=== PATIENT | female | born 1985 | race Caucasian/White ===

== ENCOUNTER 2017-10-22 19:57 | Emergency (ER) | payer MEDICAID ==
[~2017-10-22] VITALS: Ht 571.8 cm; Wt 83.0 kg
[~2017-10-22 19:57] MED LIST: BACL10TA PO; CITA-278 PO; CITA20TA2 PO; TRAZ-143 PO
[2017-10-22] MEDS ORDERED: nicotine 21mg patch - 24 hr TD ONE (21:10)
[2017-10-22 21:21] LABS: BASOPHILS # (AUTO) 0.1 X10'3 (0-0.2); BASOPHILS % (AUTO) 1.8 % (0-1); EOSINOPHILS % (AUTO) 0.9 % (0-6); HEMATOCRIT 34.8 % (35.0-45.0); HEMOGLOBIN 11.6 g/dl (12.0-16.0); LYMPHOCYTES # (AUTO) 1.5 X10'3 (1.1-4.8); LYMPHOCYTES % (AUTO) 26.4 % (21-51); MEAN CORPUSCULAR HEMOGLOBIN 25.3 PG (27.0-31.0); MEAN CORPUSCULAR HGB CONC 33.3 % (33.0-36.5); MEAN CORPUSCULAR VOLUME 75.9 FL (78-98); MEAN PLATELET VOLUME 9.3 FL (7.4-10.4); MONOCYTES # (AUTO) 0.6 X10'3 (0-0.9); NEUTROPHILS # (AUTO) 3.4 X10'3 (1.8-7.7); NEUTROPHILS % (AUTO) 60.9 % (42-75); PLATELET COUNT 319 X10'3 (140-440); RED BLOOD COUNT 4.58 X10'6 (4.20-5.60); RED CELL DISTRIBUTION WIDTH 15.9 % (11.5-14.5); WHITE BLOOD COUNT 5.5 X10'3 (4.5-11.0)
[2017-10-22 21:35] LABS: ALANINE AMINOTRANSFERASE 25 U/L (12-78); ALBUMIN 3.6 G/DL (3.4-5.0); ALBUMIN/GLOBULIN RATIO 0.9 (1.1-1.5); ALKALINE PHOSPHATASE 133 IU/L (46-116); ANION GAP 15 (8-16); ASPARTATE AMINO TRANSFERASE 26 U/L (10-37); BILIRUBIN,TOTAL 0.2 MG/DL (0.1-1.0); BLOOD UREA NITROGEN 5 MG/DL (7-18); BUN/CREATININE RATIO 7.2 (6.6-38.0); CHLORIDE 103 MMOL/L (99-107); CREATININE 0.69 MG/DL (0.40-0.90); GLUCOSE 80 MG/DL (70-104); POTASSIUM 3.9 MMOL/L (3.5-5.1); SODIUM 141 MMOL/L (135-145); TOTAL CARBON DIOXIDE 22.9 MMOL/L (24-32); TOTAL PROTEIN 7.8 G/DL (6.4-8.2); eGFR > 90 ML/MIN
[2017-10-22 21:49] LABS: ACETAMINOPHEN < 2.0 UG/ML (10-30)
[2017-10-23 04:09] LABS: CLARITY,URINE SLIGHTLY CLOUDY (Clear); COLOR,URINE YELLOW (Yellow); GLUCOSE, URINE NEGATIVE (Neg); KETONES,URINE 15 mg/dl (Neg); LEUKOCYTE ESTERASE ,URINE NEGATIVE (Neg); NITRITES, URINE NEGATIVE (Neg); OCCULT BLOOD,URINE TRACE-LYSED (Neg); PROTEIN,URINE NEGATIVE (Neg); UROBILINOGEN,URINE 0.2 E.U/dL (0.2-1.0)
[2017-10-23 04:11] LABS: URINE HCG NEGATIVE (NEG)
[2017-10-23 04:13] LABS: UA COLLECTION TYPE CLN CATCH MIDSTREAM
[2017-10-23 04:16] LABS: URINE AMPHETAMINE SCREEN NEGATIVE (Neg); URINE BARBITUATE SCREEN NEGATIVE (Neg); URINE BENZODIAZEPINES SCREEN NEGATIVE (Neg); URINE CANNABINOID SCREEN NEGATIVE (Neg); URINE COCAINE SCREEN NEGATIVE (Neg); URINE METHADONE SCREEN NEGATIVE (Neg); URINE OPIATE SCREEN NEGATIVE (Neg); URINE PHENCYCLIDINE SCREEN NEGATIVE (Neg)
[2017-10-23 04:28] LABS: BACTERIA,URINE 2+ /HPF (Neg); MUCUS STRANDS MANY /LPF (Neg); RBC,URINE NONE SEEN /HPF (0-2); SQUAMOUS EPITHELIAL CELL,UR MANY /LPF (FEW); WBC,URINE 0-4 /HPF (0-4)
[2017-10-23] MEDS ORDERED: LORazepam 0.5 MG tablet PO PRN (07:25)
[2017-10-23] MEDS ORDERED: baclofen 10mg tablet PO PRN (07:35)
[2017-10-23] MEDS ORDERED: traZODone 50mg tablet PO PRN (07:35)
[2017-10-23] MEDS: citalopram 20mg tablet PO SCH (08:15)
[2017-10-23] MEDS: nicotine prolacrilex 2mg gum BC PRN (21:18)
[2017-10-24] MEDS: nicotine prolacrilex 2mg gum BC PRN ×3 (06:51→14:38)
[2017-10-24] MEDS: citalopram 20mg tablet PO SCH (07:36)
[2017-10-24 16:57] VITALS: BP 128/74
== END 2017-10-24 16:47 ==
LOC: ER 19:57
DX: F32.9 Major depressive disorder, single episode, unspecified (principal); F41.9 Anxiety disorder, unspecified; G89.29 Other chronic pain; M54.5 Low back pain
CPT/HCPCS: 36415; 80053; 80305; 80320; 80329; 81001; 81025; 84443; 85025; 93005; 99285

== ENCOUNTER 2018-01-20 11:41 | Emergency (ER) | payer MEDICAID ==
[~2018-01-20] VITALS: Ht 165.1 cm; Wt 86.4 kg
[~2018-01-20 11:41] MED LIST changes: -CITA-278 PO; -TRAZ-143 PO; +TRAZ-218 PO
[2018-01-20 13:30] VITALS: BP 96/57
== END 2018-01-20 13:54 | disposition home or self-care (01) ==
LOC: ER 11:42
DX: J02.9 Acute pharyngitis, unspecified (principal); J06.9 Acute upper respiratory infection, unspecified; I10 Essential (primary) hypertension; Z79.899 Other long term (current) drug therapy; Z56.0 Unemployment, unspecified; Z60.2 Problems related to living alone
CPT/HCPCS: 87081; 87880; 99284

== ENCOUNTER 2018-12-20 00:58 | Emergency (ER) | payer MEDICAID ==
[~2018-12-20] VITALS: Ht 165.1 cm; Wt 97.0 kg
[~2018-12-20 00:58] MED LIST changes: -BACL10TA PO; -CITA20TA2 PO; +FOLI1TAB16 PO; +HYDR-3972 PO; +IBUP-1984 PO; +LORA0.5T PO; +MULT-1179 PO; +NICO-631 TD; -TRAZ-218 PO; +TRAZ-219 PO; +VENL150T3 PO
--- NOTE | 2018-12-20 01:28 | NUR ---
Patient asks several times for her boyfriend who is, "In the lobby and really really worried about me." Patient is not in the lobby and registration has been informed he may come back when he arrives. Patient continues to ask for her boyfriend who has not come. She asks that I call him and he states that he isn't going to come in [facility] to see her.
[2018-12-20 01:29] LABS: URINE HCG NEGATIVE (NEG)
[2018-12-20 01:33] LABS: URINE AMPHETAMINE SCREEN NEGATIVE (Neg); URINE BARBITUATE SCREEN NEGATIVE (Neg); URINE BENZODIAZEPINES SCREEN NEGATIVE (Neg); URINE CANNABINOID SCREEN NEGATIVE (Neg); URINE COCAINE SCREEN NEGATIVE (Neg); URINE METHADONE SCREEN NEGATIVE (Neg); URINE OPIATE SCREEN NEGATIVE (Neg); URINE PHENCYCLIDINE SCREEN NEGATIVE (Neg)
[2018-12-20] MEDS ORDERED: normal saline 1000ML IV soln IVB ONE ×2 (01:35→02:10)
[2018-12-20 01:42] LABS: ALANINE AMINOTRANSFERASE 25 U/L (12-78); ALBUMIN 3.4 G/DL (3.4-5.0); ALBUMIN/GLOBULIN RATIO 0.9 (1.1-1.5); ALKALINE PHOSPHATASE 107 IU/L (46-116); ANION GAP 10 (8-16); ASPARTATE AMINO TRANSFERASE 16 U/L (10-37); BASOPHILS % (AUTO) 0.4 % (0-1); BILIRUBIN,TOTAL 0.1 MG/DL (0.1-1.0); BLOOD UREA NITROGEN 7 MG/DL (7-18); BUN/CREATININE RATIO 11.3 (6.6-38.0); CALCIUM 8.4 MG/DL (8.5-10.1); CHLORIDE 110 MMOL/L (99-107); CREATININE 0.62 MG/DL (0.40-0.90); EOSINOPHILS # (AUTO) 0.1 X10'3 (0-0.9); EOSINOPHILS % (AUTO) 1.1 % (0-6); ETHANOL 0.287 GM/DL (0.0-0.010); GLUCOSE 85 MG/DL (70-104); HEMATOCRIT 35.5 % (35.0-45.0); HEMOGLOBIN 11.7 g/dl (12.0-16.0); LYMPHOCYTES # (AUTO) 2.8 X10'3 (1.1-4.8); LYMPHOCYTES % (AUTO) 32.4 % (21-51); MEAN CORPUSCULAR HGB CONC 32.9 g/dL (33.0-36.5); MEAN CORPUSCULAR VOLUME 85.1 FL (78-98); MEAN PLATELET VOLUME 9.1 FL (7.4-10.4); MONOCYTES # (AUTO) 0.6 X10'3 (0-0.9); NEUTROPHILS # (AUTO) 5.1 X10'3 (1.8-7.7); NEUTROPHILS % (AUTO) 59.1 % (42-75); PLATELET COUNT 186 X10'3 (140-440); POTASSIUM 3.4 MMOL/L (3.5-5.1); RED BLOOD COUNT 4.17 X10'6 (4.20-5.60); SODIUM 143 MMOL/L (135-145); TOTAL PROTEIN 7.1 G/DL (6.4-8.2); WHITE BLOOD COUNT 8.7 X10'3 (4.5-11.0); eGFR > 90 ML/MIN
[2018-12-20] MEDS ORDERED: nicotine 21mg patch - 24 hr TD ONE (02:20)
[2018-12-20 03:04] VITALS: BP 109/53
== END 2018-12-20 03:06 | disposition home or self-care (01) ==
LOC: ER 00:59
DX: F10.129 Alcohol abuse with intoxication, unspecified (principal); F32.9 Major depressive disorder, single episode, unspecified; I10 Essential (primary) hypertension; F41.9 Anxiety disorder, unspecified; Z56.0 Unemployment, unspecified; Z98.890 Other specified postprocedural states; Z98.84 Bariatric surgery status; Z79.899 Other long term (current) drug therapy; Y90.9 Presence of alcohol in blood, level not specified
CPT/HCPCS: 36415; 80053; 80305; 80320; 81025; 85025; 99283; J7030

== ENCOUNTER 2018-12-21 22:11 | Emergency (ER) | payer MEDICAID ==
[~2018-12-21] VITALS: Ht 154.9 cm; Wt 95.5 kg
--- NOTE | 2018-12-21 22:16 | NUR ---
CONTACTED POISON CONTROL, PER ANDREA, WATCH FOR 6 HRS FOR CMS, RESPIRATORY DEPRESSION. ALSO WATCH FOR SEIZURES. CHECK TOX LABS.
--- NOTE | 2018-12-21 22:35 | NUR ---
pt has written [id number] by verena
[2018-12-21 22:49] LABS: BASOPHILS % (AUTO) 0.4 % (0-1); EOSINOPHILS # (AUTO) 0.1 X10'3 (0-0.9); HEMOGLOBIN 11.8 g/dl (12.0-16.0); LYMPHOCYTES # (AUTO) 2.2 X10'3 (1.1-4.8); LYMPHOCYTES % (AUTO) 30.2 % (21-51); MEAN CORPUSCULAR HEMOGLOBIN 27.9 PG (27.0-31.0); MEAN CORPUSCULAR HGB CONC 32.7 g/dL (33.0-36.5); MEAN CORPUSCULAR VOLUME 85.2 FL (78-98); MEAN PLATELET VOLUME 9.1 FL (7.4-10.4); MONOCYTES # (AUTO) 0.5 X10'3 (0-0.9); MONOCYTES % (AUTO) 6.4 % (2-12); NEUTROPHILS # (AUTO) 4.6 X10'3 (1.8-7.7); PLATELET COUNT 186 X10'3 (140-440); RED BLOOD COUNT 4.22 X10'6 (4.20-5.60); RED CELL DISTRIBUTION WIDTH 16.2 % (11.5-14.5); WHITE BLOOD COUNT 7.4 X10'3 (4.5-11.0)
--- NOTE | 2018-12-21 23:00 | NUR ---
PROVIDED PT WITH GREEN SCRUBS TO CHANGE INTO. ADVISED PT THAT NOTHING TO BE LEFT ON UNDER GREEN SCRUBS AND TO PLACE BELONGINGS INTO BELONGINGS BAG.
[2018-12-21 23:19] LABS: URINE HCG NEGATIVE (NEG)
[2018-12-21 23:28] LABS: ALANINE AMINOTRANSFERASE 21 U/L (12-78); ALBUMIN 3.4 G/DL (3.4-5.0); ALBUMIN/GLOBULIN RATIO 0.9 (1.1-1.5); ALKALINE PHOSPHATASE 106 IU/L (46-116); ANION GAP 10 (8-16); ASPARTATE AMINO TRANSFERASE 19 U/L (10-37); BILIRUBIN,TOTAL 0.1 MG/DL (0.1-1.0); BLOOD UREA NITROGEN 8 MG/DL (7-18); BUN/CREATININE RATIO 11.8 (6.6-38.0); CALCIUM 8.2 MG/DL (8.5-10.1); CHLORIDE 111 MMOL/L (99-107); CREATININE 0.68 MG/DL (0.40-0.90); ETHANOL 0.264 GM/DL (0.0-0.010); GLUCOSE 76 MG/DL (70-104); POTASSIUM 3.5 MMOL/L (3.5-5.1); SODIUM 144 MMOL/L (135-145); TOTAL CARBON DIOXIDE 23.3 MMOL/L (24-32); TOTAL PROTEIN 7.3 G/DL (6.4-8.2); eGFR > 90 ML/MIN
[2018-12-21 23:29] LABS: ACETAMINOPHEN < 2.0 UG/ML (10-30)
[2018-12-21 23:32] LABS: URINE AMPHETAMINE SCREEN NEGATIVE (Neg); URINE BARBITUATE SCREEN NEGATIVE (Neg); URINE BENZODIAZEPINES SCREEN NEGATIVE (Neg); URINE CANNABINOID SCREEN NEGATIVE (Neg); URINE COCAINE SCREEN NEGATIVE (Neg); URINE METHADONE SCREEN NEGATIVE (Neg); URINE OPIATE SCREEN NEGATIVE (Neg); URINE PHENCYCLIDINE SCREEN NEGATIVE (Neg)
[2018-12-22] MEDS ORDERED: TRAM50TA2 PO (01:09)
--- NOTE | 2018-12-22 02:30 | NUR ---
PT REQUESTING TO PAY OUT OF POCKET FOR TELE-PSYCH CONSULT SO SHE COULD BE RELEASED FROM HER HOLD AND SENT HOME TO TAKE CARE OF HER DOG. PT INFORMED THAT WE KNOW LONGER OFFER THAT SERVICE AND THE COUNTY WOULD BE SEEING HER IN THE MORNING. PT WALKED BACK TO HER ROOM.
--- NOTE | 2018-12-22 06:30 | NUR ---
patient received asleep.
[2018-12-22 07:51] VITALS: BP 142/100
--- NOTE | 2018-12-22 08:10 | NUR ---
breakfast served.zachmoygonzalo denies SI at this time although reports history of OD and cutting self.Cooperative at this time,awaiting for [facility] to eval.
[2018-12-22] MEDS ORDERED: TRAZ-219 PO (09:27)
[2018-12-22] MEDS ORDERED: HYDR-4353 PO (09:27)
[2018-12-22] MEDS ORDERED: VENL150C2 PO (09:27)
[2018-12-22] MEDS ORDERED: acetaminophen 325mg tablet PO ONE (09:50)
--- NOTE | 2018-12-22 10:07 | NUR ---
patient asleep at this time.
--- NOTE | 2018-12-22 12:50 | NUR ---
Call from poison "Gilda" stated that after review of the labs and that if patient is at baseline no futher intervention is nessessary.
--- NOTE | 2018-12-22 12:56 | NUR ---
PT TRANSFERED FROM ER7 TO OF25. SAFETY LUNCH TRAY DELIVERED TO BEDSIDE
[2018-12-22] MEDS ORDERED: traZODone 50mg tablet PO SCH (21:00)
[2018-12-23] MEDS ORDERED: venlafaxine XR 75mg capsule (Q24H) PO SCH (08:00)
== END 2018-12-22 15:29 | disposition home or self-care (01) ==
LOC: ER 22:12
DX: F10.920 Alcohol use, unspecified with intoxication, uncomplicated (principal); R11.2 Nausea with vomiting, unspecified; I10 Essential (primary) hypertension; F41.9 Anxiety disorder, unspecified; F32.9 Major depressive disorder, single episode, unspecified; Z98.84 Bariatric surgery status; Z98.890 Other specified postprocedural states; Z60.2 Problems related to living alone; Z56.0 Unemployment, unspecified; Z79.899 Other long term (current) drug therapy; Y90.0 Blood alcohol level of less than 20 mg/100 ml
CPT/HCPCS: 36415; 80053; 80305; 80320; 80329; 81025; 84443; 85025; 99285

== ENCOUNTER 2019-05-10 11:11 | Emergency (ER) | payer MEDICAID ==
[~2019-05-10] VITALS: Ht 165.1 cm; Wt 102.2 kg
[~2019-05-10 11:11] MED LIST changes: -FOLI1TAB16 PO; -HYDR-3972 PO; +HYDR-4353 PO; -IBUP-1984 PO; -LORA0.5T PO; -MULT-1179 PO; -NICO-631 TD; +TRAM50TA2 PO; -TRAZ-219 PO; +TRAZ-256 PO; +VENL150C2 PO; -VENL150T3 PO
[2019-05-10 11:23] VITALS: BP 132/88
[2019-05-10] MEDS ORDERED: PERM60CR4 TP (12:32)
== END 2019-05-10 12:42 | disposition home or self-care (01) ==
LOC: ER 11:11
DX: B86 Scabies (principal); I10 Essential (primary) hypertension; Z56.0 Unemployment, unspecified; Z98.84 Bariatric surgery status; Z79.899 Other long term (current) drug therapy
CPT/HCPCS: 99283

== ENCOUNTER 2020-04-03 05:50 | Emergency (ER) | payer MEDICAID ==
[~2020-04-03] VITALS: Ht 165.1 cm; Wt 103.5 kg
[~2020-04-03 05:50] MED LIST changes: +PERM60CR4 TP
[2020-04-03 05:55] VITALS: BP 132/88
[2020-04-03] MEDS ORDERED: MUPI22OI30 TOP (06:33)
--- NOTE | 2020-04-03 07:09 | NUR ---
collected urine from the pt and also the bld ,pt is cooperative nad thankful,no anxiety or stress noted.will cont to monitor.
[2020-04-03 07:14] LABS: BASOPHILS # (AUTO) 0.1 X10'3 (0-0.2); BASOPHILS % (AUTO) 0.9 % (0-1); EOSINOPHILS # (AUTO) 0.1 X10'3 (0-0.9); EOSINOPHILS % (AUTO) 2.1 % (0-6); HEMATOCRIT 26.5 % (35.0-45.0); LYMPHOCYTES % (AUTO) 41.5 % (21-51); MEAN CORPUSCULAR HEMOGLOBIN 19.4 PG (27.0-31.0); MEAN CORPUSCULAR HGB CONC 30.2 g/dL (33.0-36.5); MEAN CORPUSCULAR VOLUME 64.2 FL (78-98); MEAN PLATELET VOLUME 9.2 FL (7.4-10.4); MONOCYTES # (AUTO) 0.4 X10'3 (0-0.9); MONOCYTES % (AUTO) 5.9 % (2-12); NEUTROPHILS # (AUTO) 3.6 X10'3 (1.8-7.7); NEUTROPHILS % (AUTO) 49.6 % (42-75); PLATELET COUNT 388 X10'3 (140-440); RED BLOOD COUNT 4.13 X10'6 (4.20-5.60); RED CELL DISTRIBUTION WIDTH 16.8 % (11.5-14.5); WHITE BLOOD COUNT 7.2 X10'3 (4.5-11.0)
[2020-04-03 07:21] LABS: URINE HCG NEGATIVE (NEG)
[2020-04-03 07:29] LABS: ALANINE AMINOTRANSFERASE 19 U/L (12-78); ALBUMIN 3.6 G/DL (3.4-5.0); ALBUMIN/GLOBULIN RATIO 0.8 (1.1-1.5); ALKALINE PHOSPHATASE 154 IU/L (46-116); ANION GAP 13 (8-16); ASPARTATE AMINO TRANSFERASE 24 U/L (10-37); BILIRUBIN,TOTAL 0.2 MG/DL (0.1-1.0); BLOOD UREA NITROGEN 9 MG/DL (7-18); BUN/CREATININE RATIO 13.8 (6.6-38.0); CALCIUM 9.2 MG/DL (8.5-10.1); CHLORIDE 107 MMOL/L (99-107); CREATININE 0.65 MG/DL (0.40-0.90); GLUCOSE 101 MG/DL (70-104); POTASSIUM 3.6 MMOL/L (3.5-5.1); SODIUM 145 MMOL/L (135-145); TOTAL CARBON DIOXIDE 25.3 MMOL/L (24-32); eGFR > 90 ML/MIN
[2020-04-03 07:32] LABS: URINE AMPHETAMINE SCREEN NEGATIVE (Neg); URINE BARBITUATE SCREEN NEGATIVE (Neg); URINE BENZODIAZEPINES SCREEN NEGATIVE (Neg); URINE CANNABINOID SCREEN NEGATIVE (Neg); URINE COCAINE SCREEN NEGATIVE (Neg); URINE METHADONE SCREEN NEGATIVE (Neg); URINE OPIATE SCREEN NEGATIVE (Neg); URINE PHENCYCLIDINE SCREEN NEGATIVE (Neg)
[2020-04-03 07:37] LABS: ETHANOL 0.214 GM/DL (0.0-0.010)
--- NOTE | 2020-04-03 07:42 | NUR ---
pt stated that she would like to go home with malathi as she was just proactive about things ,pt stated that i am techinacal not on 5150 hold i have been through all this process before steven i know how it works and i came voulantarily so i can leave ,instructed thats not how things work ,we need to send ur medically clear paperwork to [facility] and then the [facility] eval will come for evalua and will go from there ,pt refussed to understand ,informed taht she can talk to provider for better understanding. pt verbalized understanding ,spoke to dr kaba and provider is going to talk to the pt.
[2020-04-03] MEDS ORDERED: mupirocin 2% ointment 22GM TP SCH (08:00)
[2020-04-03 08:12] LABS: PLATELET ESTIMATE NORMAL
[2020-04-03 08:13] LABS: ANISOCYTOSIS 1+; HYPOCHROMASIA 2+; MICROCYTOSIS 2+; POLYCHROMASIA 1+
[2020-04-03 08:15] LABS: LARGE PLATELETS FEW; POIKILOCYTOSIS 1+
--- NOTE | 2020-04-03 09:00 | NUR ---
ISAIAS LOPEZ SPOKEN TO PT REGARDING THE 1798 HOLD EXPLAINED IT TO THE PT BY ME AND DR GUERRA EARLIER BUT PT IS GETTING ANXIOUS AND WANT TO LEAVE SOON POSSIBLE WITH SAFETY PLAN.CHARGE NURSE LAURYN ESPARZA IS ALSO AWARE ABOUT IT.
--- NOTE | 2020-04-03 11:59 | NUR ---
pt resting in bed quietly ,no distress noted .will cont to monitor .
--- NOTE | 2020-04-03 13:22 | NUR ---
PT UP TO BR, VOIDED X1. COOPERATIVE WITH CARE.
[2020-04-03] MEDS ORDERED: calcium carbonate 500mg chew tablet PO ONE ×2 (15:10→17:30)
== END 2020-04-03 17:00 | disposition home or self-care (01) ==
LOC: ER 05:51
DX: L98.499 Non-pressure chronic ulcer of skin of other sites with unspecified severity (principal); F32.9 Major depressive disorder, single episode, unspecified; I10 Essential (primary) hypertension; F41.9 Anxiety disorder, unspecified; Z98.890 Other specified postprocedural states; Z72.89 Other problems related to lifestyle; Z60.2 Problems related to living alone; Z56.0 Unemployment, unspecified; Z79.2 Long term (current) use of antibiotics; Z79.899 Other long term (current) drug therapy
CPT/HCPCS: 36415; 80053; 80305; 80320; 81025; 84443; 85008; 85025; 99283; 99284; 99285

== ENCOUNTER 2020-11-27 19:06 | Emergency (ER) | payer MEDICAID ==
[~2020-11-27] VITALS: Ht 162.6 cm; Wt 101.2 kg
[2020-11-27 20:06] LABS: CLARITY,URINE CLEAR (Clear); COLOR,URINE YELLOW (Yellow); GLUCOSE, URINE NEGATIVE (Neg); KETONES,URINE NEGATIVE (Neg); LEUKOCYTE ESTERASE ,URINE NEGATIVE (Neg); NITRITES, URINE NEGATIVE (Neg); OCCULT BLOOD,URINE NEGATIVE (Neg); PROTEIN,URINE NEGATIVE (Neg); UROBILINOGEN,URINE 0.2 E.U/dL (0.2-1.0)
[2020-11-27 20:07] LABS: BASOPHILS # (AUTO) 0.1 X10'3 (0-0.2); BASOPHILS % (AUTO) 1.2 % (0-1); EOSINOPHILS # (AUTO) 0.1 X10'3 (0-0.9); EOSINOPHILS % (AUTO) 1.3 % (0-6); HEMATOCRIT 30.1 % (35.0-45.0); HEMOGLOBIN 9.2 g/dl (12.0-16.0); LYMPHOCYTES # (AUTO) 2.4 X10'3 (1.1-4.8); LYMPHOCYTES % (AUTO) 36.6 % (21-51); MEAN CORPUSCULAR HEMOGLOBIN 19.7 PG (27.0-31.0); MEAN CORPUSCULAR HGB CONC 30.4 g/dL (33.0-36.5); MEAN CORPUSCULAR VOLUME 64.8 FL (78-98); MEAN PLATELET VOLUME 8.9 FL (7.4-10.4); MONOCYTES # (AUTO) 0.5 X10'3 (0-0.9); MONOCYTES % (AUTO) 7.7 % (2-12); NEUTROPHILS # (AUTO) 3.4 X10'3 (1.8-7.7); NEUTROPHILS % (AUTO) 53.2 % (42-75); PLATELET COUNT 273 X10'3 (140-440); RED BLOOD COUNT 4.65 X10'6 (4.20-5.60); RED CELL DISTRIBUTION WIDTH 22.1 % (11.5-14.5); WHITE BLOOD COUNT 6.5 X10'3 (4.5-11.0)
[2020-11-27 20:09] LABS: UA COLLECTION TYPE CLN CATCH MIDSTREAM; URINE HCG NEGATIVE (NEG)
[2020-11-27 20:20] LABS: URINE AMPHETAMINE SCREEN NEGATIVE (Neg); URINE BARBITUATE SCREEN NEGATIVE (Neg); URINE BENZODIAZEPINES SCREEN NEGATIVE (Neg); URINE CANNABINOID SCREEN NEGATIVE (Neg); URINE COCAINE SCREEN NEGATIVE (Neg); URINE METHADONE SCREEN NEGATIVE (Neg); URINE OPIATE SCREEN NEGATIVE (Neg); URINE PHENCYCLIDINE SCREEN NEGATIVE (Neg)
[2020-11-27] MEDS ORDERED: POLY510P31 PO (20:27)
[2020-11-27] MEDS ORDERED: FAMO40TA7 PO (20:27)
[2020-11-27] MEDS ORDERED: FERR325T7 PO (20:27)
[2020-11-27] MEDS ORDERED: DULO30CA52 PO (20:27)
[2020-11-27] MEDS ORDERED: PRAM0.129 PO (20:27)
[2020-11-27] MEDS ORDERED: ACAM333T8 PO (20:27)
[2020-11-27 20:28] LABS: ALANINE AMINOTRANSFERASE 25 U/L (12-78); ALBUMIN 3.7 G/DL (3.4-5.0); ALBUMIN/GLOBULIN RATIO 0.9 (1.1-1.5); ALKALINE PHOSPHATASE 120 IU/L (46-116); ANION GAP 13 (8-16); ASPARTATE AMINO TRANSFERASE 22 U/L (10-37); BILIRUBIN,TOTAL 0.2 MG/DL (0.1-1.0); BLOOD UREA NITROGEN 5 MG/DL (7-18); BUN/CREATININE RATIO 7.5 (6.6-38.0); CALCIUM 8.9 MG/DL (8.5-10.1); CHLORIDE 103 MMOL/L (99-107); CREATININE 0.67 MG/DL (0.40-0.90); ETHANOL 0.299 GM/DL (0.0-0.010); GLUCOSE 109 MG/DL (70-104); SODIUM 138 MMOL/L (135-145); TOTAL CARBON DIOXIDE 22.5 MMOL/L (24-32); eGFR > 90 ML/MIN
[2020-11-27 21:48] LABS: ANISOCYTOSIS 3+; PLATELET ESTIMATE NORMAL
[2020-11-27 21:49] LABS: ELLIPTOCYTES FEW; HYPOCHROMASIA 1+; LARGE PLATELETS FEW; MICROCYTOSIS 2+; POIKILOCYTOSIS FEW; POLYCHROMASIA FEW; TEAR DROP CELLS FEW
--- NOTE | 2020-11-27 23:30 | NUR ---
Spoke with pt. who is communicating pleasantly and appropriately. She states that she is feeling "better" after she received some food and PO fluids. Pt. is denying SI now and states that she feels that she was just carried by emotions when she was initially intoxicated at time of her arrival to the ED. Pt. expresses that she has resources that she pulls on, a counselor and consistent contact with [facility].
--- NOTE | 2020-11-28 00:30 | NUR ---
Rocio greco in EDM - 11/28/20 at 0132 by ERICKSON EDP updated on pt. EDP to speak with patient and re-evaluated her soon.
--- NOTE | 2020-11-28 00:30 | NUR ---
EDP updated on pt. EDP to re-eval pt. soon.
[2020-11-28 01:47] VITALS: BP 148/98
== END 2020-11-28 01:49 ==
LOC: ER 19:08
DX: R45.851 Suicidal ideations (principal); F10.10 Alcohol abuse, uncomplicated; I10 Essential (primary) hypertension; F32.9 Major depressive disorder, single episode, unspecified; F41.0 Panic disorder [episodic paroxysmal anxiety]; Z56.0 Unemployment, unspecified; Z79.899 Other long term (current) drug therapy
CPT/HCPCS: 36415; 80053; 80305; 80320; 81003; 81025; 85008; 85025; 99283; 99285